=== PATIENT | female | born 1970 | race American Indian/Alaskan Native ===

== ENCOUNTER 2016-11-08 10:18 | Outpatient (CLI) | payer OTHER ==
--- NOTE | 2016-11-08 12:57 | XRay Report ---
Lumbar spine 3 views: History: Upper or arthritis. Depression. Findings: Normal height of vertebral bodies and intervertebral disc. Normal articular surfaces. No fracture. No soft tissue calcification. Impression: Essentially negative lumbar spine.
== END 2016-11-08 10:19 | disposition home or self-care (01) ==
LOC: XRAY 10:18
PROVIDERS: ATTEND Internal Medicine
DX: M54.5 Low back pain (principal); E11.43 Type 2 diabetes mellitus with diabetic autonomic (poly)neuropathy; G56.00 Carpal tunnel syndrome, unspecified upper limb; K31.84 Gastroparesis; M46.87 Other specified inflammatory spondylopathies, lumbosacral region; F32.9 Major depressive disorder, single episode, unspecified
CPT/HCPCS: 72100